=== PATIENT | female | born 1965 | race African-American/Black ===

== ENCOUNTER 2020-04-17 02:08 | Emergency (ER) | payer OTHER ==
[2020-04-17 02:45] VITALS: BMI 34.7
--- NOTE | 2020-04-17 02:56 | PDOC ---
History of Present Illness - General Chief Complaint: Injury Stated Complaint: FALL/INJURY, S/P SURGERY Time Seen by Provider: 04/17/20 02:56 Past History - Medical History Allergies/Adverse Reactions: Allergies Allergy/AdvReac Type Severity Reaction Status Date / Time No Known Allergies Allergy Verified 04/17/20 03:09 Home Medications: Ambulatory Orders Acetaminophen [Tylenol -] 1,000 mg PO Q6H 04/17/20 Lisinopril/Hydrochlorothiazide [Lisinopril-Hctz 10-12.5 mg Tab] 1 each PO DAILY 04/17/20 - Reproductive History Is Patient Now?: No - Psycho-Social/Smoking History Smoking History: Never smoked Have you smoked in the past 12 months: No Information on smoking cessation initiated: No - Substance Abuse Hx (Audit-C & DAST Scrn) How often the patient has a drink containing alcohol: Never Score: In Men: 4 or > Positive; In Women: 3 or > Positive: 0 Screen Result (Pos requires Nsg. Audit-10AR): Negative In the last yr the pt used illegal drug/Rx for NonMed reason: No Score: Yes response is considered Positive: 0 Screen Result (Positive result requires Nsg. DAST-10): Negative *Physical Exam - Vital Signs Last Vital Signs Temp Pulse Resp BP Pulse Ox 98.9 F 67 20 116/70 100 04/17/20 02:42 04/17/20 02:42 04/17/20 02:42 04/17/20 02:42 04/17/20 02:42 Medical Decision Making - Medical Decision Making 04/17/20 03:32 HPI: 55yo R-handed F hx arthritis and R knee surgery 1wk ago on blood thinners presents from home c/o R hand lac s/p mechanical fall from standing 1hr ago. Pt discharged yesterday s/p knee surgery, walks with walker, in USMT when went to bed. Pt woke up and used bathroom and walked to kitchen, took 1 step to left away from walker and L knee buckled under her, falling on L side. Endorses L- sided neck pain and b/l knee pain. Denies syncope, head injury, LOC, neck pain, back pain, hip pain, LUE pain. Pt able to stand and walk on own after. Pt does not know what hit R hand on. Bleeding stopped with pressure. Last tetanus unknown. Last percocet at 1700. Denies numbness/tingling, weakness, headache, vision changes, N/V, D/C, CP, SOB, covid, URI-like sx, abdominal pain. ROS: Constitutional: Negative for chills, fever, fatigue, diaphoresis. HENT: Negative for sore throat, rhinorrhea, congestion. Eyes: Negative for visual disturbance. Respiratory: Negative for shortness of breath, cough, and wheezing. Cardiovascular: Negative for chest pain, palpitations, and leg swelling. Gastrointestinal: Negative for abdominal pain, blood in stool, constipation, diarrhea, nausea, and vomiting. Genitourinary: Negative for dysuria, flank pain, and hematuria. Musculoskeletal: Positive for b/l knee pain, L-sided neck pain. Negative for myalgias, back pain. Skin: Positive for R hand lac. Negative for rash. Neurological: Negative for light-headedness, dizziness, vertigo, syncope, weakness, numbness and headaches. Psychiatric/Behavioral: Negative for behavioral problems and confusion. PE: Gen: Alert, NAD, comfortable-appearing, obese HEENT: PERRL, EOMI, MMM, NCAT. No conjunctival pallor. Sclera are non-icteric. CV: Regular rate and rhythm. No murmurs, rubs, or gallops. PULM: No resp distress. CTAB, no wheezes, rales, or rhonchi. ABD: soft, NT/ND, no rebound tenderness or guarding, no CVA tenderness. BACK: No TTP of c/t/l-spine. No step-offs or deformities. MSK: No bony deformities. 2+ pulses in all extremities. EXTREMITIES: No cyanosis. No clubbing. No edema. No calf tenderness. No TTP along long bones. RUE: no TTP of wrist or elbow or hand or long bones. SILT throughout. Full ROM of all digits of hand at all joints, full ROM of wrist and elbow and shoulder. 3cm nonbleeding linear lac to palmar surface of R distal ulnar palm between 4th/5th digits extending into webspace between 4th/5th digit with 1cm gaping, deep into subcutaneous tissue. RLE: bandage to anterior R knee (s/p knee surgery). Full ROM knee, 5/5 strength, SILT throughout, <2 sec cap refill. LLE: no rain or soft tissue deformities. Full ROM knee, 5/5 strength, SILT throughout, <2 sec cap refill. No TTP NEURO: AAOx3. PERRL. No gross CN deficits. Strength and sensation grossly intact throughout. PSYCH: Normal mood and thought pattern. SKIN: Warm and dry. Normal capillary refill. No rashes. No jaundice. MDM: 55yo R-handed F hx arthritis and R knee surgery 1wk ago on blood thinners presents from home c/o R hand lac s/p mechanical fall from standing 1hr ago. Hemodynamically stable, afebrile, neurologically intact, R hand neurovascularly intact. Ddx: laceration, deep but w/o e/o tendon or nerve involvement, neurovascularly intact. No e/o fracture or dislocation but due to depth of lac and distracting injury, r/o with XR. No s/s of other injuries. -Boostrix -Percocet for pain management -XR R hand: no e/o fracture -Clean and wrap -Transfer [facility] hand surgery due to complexity (depth and location) of lac repair Consult [facility] hand surgery Dr Onofre - accepted transfer to ER Discharge - Discharge Information Problems reviewed: Yes Clinical Impression/Diagnosis: Laceration of right palm Condition: Stable Disposition: TRANSFER ACUTE CARE/OTHER HOSP - Admission No - Follow up/Referral Referrals: Pam Dwyer MD [Primary Care Provider] - - Patient Discharge Instructions - Post Discharge Activity - Transfer to Acute Care Facility Receiving Facility Name: [facility]
[2020-04-17] MEDS ORDERED: DIPHTH,PERTUSS(ACELL),TET 0.5 ML DISP.SYRIN IM ONE ×2 (02:57→02:59)
--- NOTE | 2020-04-17 03:36 | PDOC ---
Attending Attestation - Resident Resident Name: ShamajrBarbi - ED Attending Attestation I have performed the following: I have examined & evaluated the patient, The case was reviewed & discussed with the resident, I agree w/resident's findings & plan, Exceptions are as noted - HPI HPI: 04/23/20 20:55 See resident HPI - Physicial Exam PE: 04/23/20 21:11 Agree with documented exam - Medical Decision Making 04/23/20 21:11 Mechanical fall with gaping wound of webspace between 4th and 5h digits of R hand analgesia f/u imaging dispo per clinical course Discharge - Discharge Information Problems reviewed: Yes Clinical Impression/Diagnosis: Laceration of right palm Condition: Stable Disposition: TRANSFER ACUTE CARE/OTHER HOSP - Follow up/Referral Referrals: Pam Dwyer MD [Primary Care Provider] - - Patient Discharge Instructions - Post Discharge Activity
[2020-04-17 04:03] VITALS: BP 107/70; PULSE 72
[2020-04-17 04:10] VITALS: TEMP 98
== END 2020-04-17 04:43 | disposition short-term general hospital (02) ==
LOC: JER 02:08
PROC: 3E0234Z Introduction of Serum, Toxoid and Vaccine into Muscle, Percutaneous Approach (ICD-10-PCS; principal; 2020-04-17)
DX: S61.411A Laceration without foreign body of right hand, initial encounter (principal)
CPT/HCPCS: 73130-TC-RT-FY; 90715; 99284-25